=== PATIENT | female | born 1990 | race Caucasian/White ===

== ENCOUNTER 2024-08-22 16:19 | Outpatient (CLI) | payer SELFPAY ==
[2024-08-22 16:51] VITALS: BMI 36.3
[2024-08-22 16:56] VITALS: BP 120/76; PULSE 91; RESP 16; TEMP 37
--- NOTE | 2024-08-24 12:09 | OB.TRI.NOTE ---
HPI - General General Date of Service: 08/22/24 HPI Narrative LEONEL CABALLERO, is a 34 F who presents for contractions. Maternal Data Information Final FRANCIS: 10[birth year]24 Gestational age: 33&1 PFSH PFS Home Medications ?Medication ?Instructions ?Recorded ?Last Taken ?Type vitamins no.159-iron 1 tab PO DAILY 08/22/24 08/22/24 08:00 History fumarate 28 mg-folic acid 800 mcg 1 TAB tablet ( Vitamin) Allergy/AdvReac Type Severity Reaction Status Date / Time No Known Allergies Allergy Verified 08/22/24 17:06 Social History Smoking Status: Never smoker NST FHR Rate Baby A Baseline: 135 Variability:: Moderate Accelerations:: 10 x 10 Decelerations:: Variable NST Reactive:: Yes Uterine Activity:: quiet Assessment & Plan (1) Threatened premature labor: QUALIFIERS: Trimester: third trimester Qualified Code(s): O47.03 - False labor before 37 completed weeks of gestation, third trimester PLAN: Reactive NST
== END 2024-08-22 18:50 | disposition home or self-care (01) ==
LOC: WPOUT 16:23 → WP 16:23
PROVIDERS: Referring Provider Obstetrics & Gynecology; Visit Provider Obstetrics & Gynecology
DX: O47.03 False labor before 37 completed weeks of gestation, third trimester (principal); Z3A.33 33 weeks gestation of pregnancy
CPT/HCPCS: 59025; 59050; 99221; G0378